=== PATIENT | female | born 1935 | race African-American/Black ===

== ENCOUNTER 2022-06-19 16:16 | Inpatient (IN) | payer OTHER ==
[~2022-06-19] VITALS: Ht 165.1 cm; Wt 49.0 kg
[2022-06-19] MEDS ORDERED: LORAZEPAM 2MG/ML CPJ IV ONE (20:45)
[2022-06-19] MEDS ORDERED: SODIUM CHLORIDE 0.9% 1,000 ML IV ONE (20:45)
[2022-06-19 21:27] LABS: CHLORIDE 113 mEq/L (98-107)
[2022-06-20 00:38] LABS: HEMOGLOBIN. 15.6 g/dL (12.0-16.0)
[2022-06-20 01:41] LABS: PLATELET ESTIMATE NORMAL
[2022-06-20 07:13] LABS: RED BLOOD CELL COUNT 9.68 mill/uL (4.2-5.4)
[2022-06-20 07:15] LABS: HEMATOCRIT. 50.4 % (36.0-48.0); MEAN CORPUSCULAR HEMOGLOBIN 15.2 pg (28.0-32.0); MEAN CORPUSCULAR VOLUME 51.7 fL (81.0-99.0); MEAN PLATELET VOLUME 8.6 fl (7.4-10.4); PLATELET 400 x1000/uL (130-400); RED CELL DISTRIBUTION WIDTH 24.6 % (11.6-14.6)
[2022-06-20] MEDS ORDERED: ACETAMINOPHEN 325MG TABLET PO PRN (11:00)
[2022-06-20] MEDS ORDERED: ONDANSETRON HCL 4MG/2ML INJ IV PRN (11:00)
[2022-06-20] MEDS ORDERED: PIPERACILLIN/TAZ 3.375G PREMIX 50 ML IV SCH (11:45)
[2022-06-20] MEDS: DEXTROSE 5% WATER 1,000 ML IV SCH (11:55)
[2022-06-20] MEDS: LORAZEPAM 2MG/ML CPJ IV PRN (14:56)
[2022-06-20 18:00] VITALS: BP 154/91
[2022-06-20 20:03] VITALS: BP 154/95
[2022-06-20] MEDS: PIPERACILLIN/TAZOBACTAM 3.375 G in DEXTROSE 5% WATER 50 ML IV SCH (21:21)
[2022-06-21 00:13] VITALS: BP 155/89
[2022-06-21 04:00] VITALS: BP 157/88
[2022-06-21] MEDS: PIPERACILLIN/TAZOBACTAM 3.375 G in DEXTROSE 5% WATER 50 ML IV SCH ×3 (05:07→21:53)
[2022-06-21] MEDS ORDERED: VALS1TAB75 PO (05:43)
[2022-06-21 06:17] LABS: CLARITY URINE CLEAR (CLEAR); COLOR URINE YELLOW (YELLOW); KETONES URINE TRACE (NEGATIVE); LEUKOCYTE ESTERASE URINE NEGATIVE (NEGATIVE); NITRITE URINE NEGATIVE (NEGATIVE); OCCULT BLOOD URINE NEGATIVE (NEGATIVE); PROTEIN URINE 1+ (NEGATIVE); SPECIFIC GRAVITY URINE 1.022 (1.005-1.030)
[2022-06-21 08:00] VITALS: BP 145/92
[2022-06-21 08:34] LABS: HEMATOCRIT. 50.4 % (36.0-48.0); HEMOGLOBIN. 14.4 g/dL (12.0-16.0); MEAN CORPUSCULAR HEMOGLOBIN 15.3 pg (28.0-32.0); MEAN CORPUSCULAR VOLUME 52.1 fL (81.0-99.0)
[2022-06-21 08:37] LABS: RED CELL DISTRIBUTION WIDTH 29.3 % (11.6-14.6)
[2022-06-21 12:00] VITALS: BP 150/91
[2022-06-21 14:16] LABS: MEAN PLATELET VOLUME 9.2 fl (7.4-10.4); PLATELET 392 x1000/uL (130-400); PLATELET ESTIMATE NORMAL
[2022-06-21 16:00] VITALS: BP 150/93
[2022-06-21 20:00] VITALS: BP 159/93
[2022-06-22] VITALS: BP 135/80
[2022-06-22] MEDS: DEXTROSE 5% WATER 1,000 ML IV SCH (03:58)
[2022-06-22 04:00] VITALS: BP 162/86
[2022-06-22] MEDS: LORAZEPAM 2MG/ML CPJ IV PRN (05:16)
[2022-06-22] MEDS: PIPERACILLIN/TAZOBACTAM 3.375 G in DEXTROSE 5% WATER 50 ML IV SCH (05:16)
[2022-06-22 08:00] VITALS: BP 157/88
[2022-06-22 12:00] VITALS: BP 158/89
[2022-06-22 16:00] VITALS: BP 152/89
[2022-06-22 18:14] LABS: HEMOGLOBIN. 14.5 g/dL (12.0-16.0)
[2022-06-22 18:15] LABS: HEMATOCRIT. 50.5 % (36.0-48.0); MEAN CORPUSCULAR VOLUME 52.5 fL (81.0-99.0)
[2022-06-22 18:16] LABS: MEAN CORPUSCULAR HEMOGLOBIN 15.1 pg (28.0-32.0)
[2022-06-22 18:17] LABS: RED CELL DISTRIBUTION WIDTH 24.5 % (11.6-14.6)
[2022-06-22 18:21] LABS: MEAN PLATELET VOLUME 8.7 fl (7.4-10.4); PLATELET 360 x1000/uL (130-400)
[2022-06-22 20:00] VITALS: BP 169/91
[2022-06-22 21:35] LABS: PLATELET ESTIMATE NORMAL
[2022-06-23] VITALS: BP 155/86
[2022-06-23 04:00] VITALS: BP 131/93
[2022-06-23 12:00] VITALS: BP 177/99
[2022-06-23] MEDS: LORAZEPAM 2MG/ML CPJ IV PRN (12:08)
[2022-06-23 16:00] VITALS: BP 173/96
[2022-06-23 20:00] VITALS: BP 167/89
[2022-06-24] VITALS: BP 162/95
[2022-06-24 04:00] VITALS: BP 160/94
[2022-06-24] MEDS: CLONIDINE 0.1MG TABLET PO PRN (06:32)
[2022-06-24 08:00] VITALS: BP 152/91
[2022-06-24 09:28] LABS: HEMOGLOBIN. 17.4 g/dL (12.0-16.0)
[2022-06-24 09:29] LABS: HEMATOCRIT. 59.9 % (36.0-48.0)
[2022-06-24 09:30] LABS: MEAN CORPUSCULAR HEMOGLOBIN 15.1 pg (28.0-32.0); MEAN CORPUSCULAR VOLUME 52.5 fL (81.0-99.0); MEAN PLATELET VOLUME 9.1 fl (7.4-10.4); PLATELET 348 x1000/uL (130-400); RED CELL DISTRIBUTION WIDTH 25.1 % (11.6-14.6)
[2022-06-24 10:32] LABS: PLATELET ESTIMATE NORMAL
[2022-06-24 12:00] VITALS: BP 160/92
[2022-06-24] MEDS: DEXTROSE 5% WATER 1,000 ML IV SCH (15:45)
[2022-06-24 16:00] VITALS: BP 160/95
[2022-06-24 20:00] VITALS: BP 139/80
[2022-06-25] VITALS: BP 162/85
[2022-06-25] MEDS: DEXTROSE 5% WATER 1,000 ML IV SCH ×3 (03:04→23:17)
[2022-06-25 04:23] VITALS: BP 147/89
[2022-06-25 07:06] LABS: CHLORIDE 110 mEq/L (98-107)
[2022-06-25 08:00] VITALS: BP 154/78
[2022-06-25 12:00] VITALS: BP 138/79
[2022-06-25 13:47] LABS: HEMOGLOBIN. 17.1 g/dL (12.0-16.0)
[2022-06-25 13:50] LABS: HEMATOCRIT. 60.3 % (36.0-48.0); MEAN CORPUSCULAR HEMOGLOBIN 15.1 pg (28.0-32.0); MEAN CORPUSCULAR VOLUME 53.4 fL (81.0-99.0)
[2022-06-25 13:51] LABS: MEAN PLATELET VOLUME 8.9 fl (7.4-10.4); PLATELET 300 x1000/uL (130-400); RED CELL DISTRIBUTION WIDTH 24.9 % (11.6-14.6)
[2022-06-25 13:57] LABS: PLATELET ESTIMATE NORMAL
[2022-06-25] MEDS: LORAZEPAM 2MG/ML CPJ IV PRN ×2 (14:25→14:30)
[2022-06-25 20:00] VITALS: BP 143/79
[2022-06-26] VITALS: BP 122/88
[2022-06-26 04:00] VITALS: BP 128/86
[2022-06-26 08:00] VITALS: BP 183/90
[2022-06-26] MEDS: CLONIDINE 0.1MG TABLET PO PRN (08:38)
[2022-06-26] MEDS: DEXTROSE 5% WATER 1,000 ML IV SCH ×2 (09:29→21:25)
[2022-06-26 11:28] LABS: CHLORIDE 101 mEq/L (98-107)
[2022-06-26 12:00] VITALS: BP 137/78
[2022-06-26 12:22] LABS: HEMOGLOBIN. 14.4 g/dL (12.0-16.0); RED BLOOD CELL COUNT 9.84 mill/uL (4.2-5.4)
[2022-06-26 12:23] LABS: HEMATOCRIT. 50.4 % (36.0-48.0); MEAN CORPUSCULAR VOLUME 51.5 fL (81.0-99.0); RED CELL DISTRIBUTION WIDTH 24.6 % (11.6-14.6)
[2022-06-26 14:29] LABS: PLATELET ESTIMATE NORMAL
[2022-06-26 14:31] LABS: MEAN PLATELET VOLUME 9.9 fl (7.4-10.4); PLATELET 296 x1000/uL (130-400)
[2022-06-26 16:00] VITALS: BP 137/81
[2022-06-26] MEDS ORDERED: GADOTERATE MEGLUMINE 5 MMOL/10 ML VIAL IV ONE (16:31)
[2022-06-26 20:00] VITALS: BP 156/83
[2022-06-27] VITALS (8 sets, daily range): BP systolic 146–176; BP diastolic 87–100
[2022-06-27] MEDS: DEXTROSE 5% WATER 1,000 ML IV SCH ×3 (04:22→22:48)
[2022-06-27] MEDS: CLONIDINE 0.1MG TABLET PO PRN ×2 (15:17→22:35)
[2022-06-28] VITALS: BP 160/81
[2022-06-28 04:00] VITALS: BP_SYST 159; BP_SYST 160; BP_DIAS 85
[2022-06-28 08:00] VITALS: BP 170/100
[2022-06-28] MEDS: DEXTROSE 5% WATER 1,000 ML IV SCH ×2 (09:04→20:40)
[2022-06-28] MEDS: CLONIDINE 0.1MG TABLET PO PRN (09:42)
[2022-06-28] MEDS ORDERED: HYDRALAZINE 20MG/ML VIAL IV NR (10:00)
[2022-06-28 12:00] VITALS: BP 113/70
[2022-06-28 12:37] LABS: CHLORIDE 95 mEq/L (98-107)
[2022-06-28 13:09] LABS: HEMOGLOBIN. 18.4 g/dL (12.0-16.0); MEAN CORPUSCULAR HEMOGLOBIN 15.2 pg (28.0-32.0); PLATELET 312 x1000/uL (130-400); RED BLOOD CELL COUNT 12.16 mill/uL (4.2-5.4); RED CELL DISTRIBUTION WIDTH 24.3 % (11.6-14.6)
[2022-06-28 16:00] VITALS: BP 139/81
[2022-06-28 16:34] LABS: PLATELET ESTIMATE NORMAL
[2022-06-28 20:00] VITALS: BP 162/91
[2022-06-28] MEDS: HYDRALAZINE 20MG/ML VIAL IV PRN (20:40)
[2022-06-29] VITALS: BP 134/78
[2022-06-29 04:00] VITALS: BP 136/76
[2022-06-29] MEDS: DEXTROSE 5% WATER 1,000 ML IV SCH ×2 (06:41→15:45)
[2022-06-29 08:00] VITALS: BP 149/89
[2022-06-29 12:21] VITALS: BP 162/79
[2022-06-29] MEDS: HYDRALAZINE 20MG/ML VIAL IV PRN (12:29)
[2022-06-29 16:45] VITALS: BP 101/74
[2022-06-29 20:00] VITALS: BP 133/83
[2022-06-30] VITALS (8 sets, daily range): BP systolic 110–156; BP diastolic 74–104
[2022-06-30] MEDS: DEXTROSE 5% WATER 1,000 ML IV SCH ×2 (02:35→14:40)
[2022-06-30 17:08] LABS: CHLORIDE 82 mEq/L (98-107)
[2022-06-30 17:26] LABS: RED BLOOD CELL COUNT 10.24 mill/uL (4.2-5.4)
[2022-06-30 17:28] LABS: MEAN CORPUSCULAR HEMOGLOBIN 15.4 pg (28.0-32.0); MEAN CORPUSCULAR VOLUME 50.8 fL (81.0-99.0)
[2022-06-30 17:29] LABS: MEAN PLATELET VOLUME 8.7 fl (7.4-10.4); PLATELET 280 x1000/uL (130-400)
[2022-06-30 18:58] LABS: PLATELET ESTIMATE NORMAL
[2022-06-30] MEDS: DEXT 5%/0.9% NACL 1,000 ML IV SCH (19:16)
[2022-07-01] VITALS: BP 136/85
[2022-07-01 04:00] VITALS: BP 152/88
[2022-07-01] MEDS: DEXT 5%/0.9% NACL 1,000 ML IV SCH ×2 (04:15→14:33)
[2022-07-01 06:52] LABS: CHLORIDE 87 mEq/L (98-107)
[2022-07-01 08:00] VITALS: BP 142/77
[2022-07-01 10:18] LABS: MEAN CORPUSCULAR HEMOGLOBIN 15.1 pg (28.0-32.0); MEAN CORPUSCULAR VOLUME 50.5 fL (81.0-99.0); RED CELL DISTRIBUTION WIDTH 25.5 % (11.6-14.6)
[2022-07-01] MEDS ORDERED: SODIUM CHLORIDE 3% 500ML IV SOLN IV SCH (11:15)
[2022-07-01] MEDS ORDERED: SODIUM CHLORIDE 3% 250 ML IV NR (11:30)
[2022-07-01 11:50] LABS: CORTISOL 23.7 ucg/dL
[2022-07-01 11:57] LABS: T4 FREE 1.76 ng/dL (0.76-1.46)
[2022-07-01 12:00] VITALS: BP 93/66
[2022-07-01 13:16] LABS: VITAMIN B12 SERUM > 2000.0 pg/mL (211-911)
[2022-07-01 14:23] LABS: PLATELET ESTIMATE NORMAL
[2022-07-01 14:24] LABS: MEAN PLATELET VOLUME 8.7 fl (7.4-10.4); PLATELET 200 x1000/uL (130-400)
[2022-07-01 16:00] VITALS: BP 128/72
[2022-07-01 20:00] VITALS: BP 116/67
[2022-07-02] VITALS: BP 133/83
[2022-07-02] MEDS: DEXT 5%/0.9% NACL 1,000 ML IV SCH ×3 (01:24→20:31)
[2022-07-02 04:00] VITALS: BP 143/80
[2022-07-02 08:00] VITALS: BP 146/85
[2022-07-02 12:00] VITALS: BP 132/67
[2022-07-02 16:00] VITALS: BP 147/79
[2022-07-02 16:37] LABS: CHLORIDE 106 mEq/L (98-107)
[2022-07-02 16:53] LABS: MEAN CORPUSCULAR HEMOGLOBIN 15.6 pg (28.0-32.0); MEAN CORPUSCULAR VOLUME 52.8 fL (81.0-99.0); MEAN PLATELET VOLUME 8.8 fl (7.4-10.4)
[2022-07-02 16:59] LABS: RED BLOOD CELL COUNT 9.85 mill/uL (4.2-5.4)
[2022-07-02 17:03] LABS: PLATELET 255 x1000/uL (130-400)
[2022-07-02 17:09] LABS: HEMOGLOBIN. 15.5 g/dL (12.0-16.0)
[2022-07-02 20:00] VITALS: BP 134/62
[2022-07-02 20:57] LABS: NUCLEATED RED BLOOD CELLS 1 /100 WBC; PLATELET ESTIMATE NORMAL
[2022-07-03] VITALS: BP 136/65
[2022-07-03 04:00] VITALS: BP 151/69
[2022-07-03 06:31] LABS: CHLORIDE 107 mEq/L (98-107)
[2022-07-03 08:00] VITALS: BP 172/98
[2022-07-03 09:00] LABS: HEMATOCRIT. 52.5 % (36.0-48.0); HEMOGLOBIN. 15.5 g/dL (12.0-16.0); MEAN CORPUSCULAR HEMOGLOBIN 15.4 pg (28.0-32.0); MEAN CORPUSCULAR VOLUME 52.4 fL (81.0-99.0); RED BLOOD CELL COUNT 10.05 mill/uL (4.2-5.4)
[2022-07-03 09:01] LABS: RED CELL DISTRIBUTION WIDTH 25.5 % (11.6-14.6)
[2022-07-03 09:02] LABS: PLATELET 205 x1000/uL (130-400)
[2022-07-03] MEDS: CLONIDINE 0.1MG TABLET PO PRN ×2 (09:14→21:04)
[2022-07-03 12:00] VITALS: BP 183/91
[2022-07-03] MEDS: HYDRALAZINE 20MG/ML VIAL IV PRN (13:21)
[2022-07-03 16:00] VITALS: BP 120/98
[2022-07-03 18:40] LABS: PLATELET ESTIMATE NORMAL
[2022-07-03 20:00] VITALS: BP 163/99
[2022-07-03] MEDS: FAMOTIDINE 20MG TABLET PO SCH (21:04)
[2022-07-03] MEDS: ENOXAPARIN 30MG/0.3ML SYR SUBCUT SCH (21:05)
[2022-07-04] VITALS: BP 155/84
[2022-07-04 04:00] VITALS: BP 180/90
[2022-07-04] MEDS: CLONIDINE 0.1MG TABLET PO PRN (04:21)
[2022-07-04 07:14] LABS: CHLORIDE 107 mEq/L (98-107)
[2022-07-04 08:00] VITALS: BP 158/84
[2022-07-04] MEDS: AMLODIPINE 5MG TABLET PO SCH (08:02)
[2022-07-04 10:13] LABS: MEAN CORPUSCULAR HEMOGLOBIN 15.2 pg (28.0-32.0); MEAN CORPUSCULAR VOLUME 53.1 fL (81.0-99.0)
[2022-07-04 10:14] LABS: PLATELET 245 x1000/uL (130-400); RED CELL DISTRIBUTION WIDTH 26.3 % (11.6-14.6)
[2022-07-04 12:00] VITALS: BP 166/97
[2022-07-04 16:00] VITALS: BP 168/108
[2022-07-04 20:00] VITALS: BP 156/89
[2022-07-04] MEDS: FAMOTIDINE 20MG TABLET PO SCH (21:07)
[2022-07-04] MEDS: ENOXAPARIN 30MG/0.3ML SYR SUBCUT SCH (21:07)
[2022-07-04] MEDS: LORAZEPAM 0.5MG TABLET PO PRN (22:00)
[2022-07-05] VITALS: BP 151/89
[2022-07-05 04:00] VITALS: BP 153/94
[2022-07-05 08:00] VITALS: BP 169/100
[2022-07-05] MEDS: AMLODIPINE 5MG TABLET PO SCH (08:26)
[2022-07-05] MEDS: CLONIDINE 0.1MG TABLET PO PRN (08:26)
[2022-07-05 12:00] VITALS: BP_SYST 158; BP_SYST 160; BP_DIAS 89; BP_DIAS 95
[2022-07-05 16:00] VITALS: BP 146/91
[2022-07-05 20:00] VITALS: BP 142/94
[2022-07-05] MEDS: FAMOTIDINE 20MG TABLET PO SCH (20:11)
[2022-07-05] MEDS: ENOXAPARIN 30MG/0.3ML SYR SUBCUT SCH (20:11)
[2022-07-05] MEDS: LORAZEPAM 0.5MG TABLET PO PRN (20:12)
[2022-07-06] VITALS: BP 152/83
[2022-07-06 04:00] VITALS: BP 155/78
[2022-07-06 08:00] VITALS: BP_SYST 123; BP_SYST 156; BP_DIAS 62; BP_DIAS 96
[2022-07-06] MEDS: AMLODIPINE 5MG TABLET PO SCH (09:28)
[2022-07-06 12:00] VITALS: BP 138/88
[2022-07-06] MEDS: LORAZEPAM 0.5MG TABLET PO PRN (15:00)
[2022-07-06 16:00] VITALS: BP 158/87
[2022-07-06 20:00] VITALS: BP 164/106
[2022-07-06] MEDS: ENOXAPARIN 30MG/0.3ML SYR SUBCUT SCH (20:40)
[2022-07-06] MEDS: FAMOTIDINE 20MG TABLET PO SCH (20:40)
[2022-07-06] MEDS: CLONIDINE 0.1MG TABLET PO PRN (20:40)
[2022-07-06 20:50] LABS: CHLORIDE 105 mEq/L (98-107)
[2022-07-06 21:58] LABS: MEAN CORPUSCULAR HEMOGLOBIN 17.3 pg (28.0-32.0); MEAN CORPUSCULAR VOLUME 52.7 fL (81.0-99.0); MEAN PLATELET VOLUME 9.6 fl (7.4-10.4); PLATELET 210 x1000/uL (130-400)
[2022-07-06 22:12] LABS: PLATELET ESTIMATE NORMAL
[2022-07-07] VITALS: BP 142/85
[2022-07-07 04:00] VITALS: BP 134/102
[2022-07-07 08:00] VITALS: BP 154/89
[2022-07-07] MEDS: AMLODIPINE 5MG TABLET PO SCH (10:21)
[2022-07-07 12:00] VITALS: BP 161/97
[2022-07-07] MEDS ORDERED: AMLO10TA80 MT (12:58)
[2022-07-07] MEDS: CLONIDINE 0.1MG TABLET PO PRN (14:01)
[2022-07-07 14:04] VITALS: BP 132/90
[2022-07-07 16:00] VITALS: BP 135/90
[2022-07-07] MEDS ORDERED: ARIPIPRAZOLE 2MG TABLET PO SCH (17:00)
== END 2022-07-07 16:30 | disposition home health service (06) | DRG 71 ==
LOC: ER 16:16 → MICUSO 23:31 → EDBEDREQTM 23:34 → EDBEDREQ 23:34 → 7WST 06-20 17:31 → 5WST 07-07 00:45
PROVIDERS: ADMIT Internal Medicine; ATTEND Internal Medicine
PROC: 4A00X4Z Measurement of Central Nervous Electrical Activity, External Approach (ICD-10-PCS; principal; 2022-06-28)
DX: G93.41 Metabolic encephalopathy (principal); E44.0 Moderate protein-calorie malnutrition; E87.0 Hyperosmolality and hypernatremia; E87.1 Hypo-osmolality and hyponatremia; Z68.1 Body mass index [BMI] 19.9 or less, adult; I10 Essential (primary) hypertension; I25.10 Atherosclerotic heart disease of native coronary artery without angina pectoris; E83.119 Hemochromatosis, unspecified; D75.1 Secondary polycythemia; R27.0 Ataxia, unspecified; G93.0 Cerebral cysts
CPT/HCPCS: 36415; 70551; 70552; 71045; 80048; 80053; 81003; 82533; 82607; 83735; 83880; 84145; 84439; 84443; 84484; 85025; 85027; 93005; 95816; 97162; 99285; A6261; A9577; C1893; J0360; J1650; J2060; J2543; J7030; J7042; J7060; J7070